=== PATIENT | female | born 2005 | race Caucasian/White ===

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

== ENCOUNTER 2024-01-30 15:14 | Outpatient (AMB) | payer OTHER, SELFPAY ==
[2024-01-30 16:10] VITALS: BP 104/40; PULSE 72; TEMP 36.6; O2SAT 98; BMI 31.6
--- NOTE | 2024-01-30 16:10 | AM.OFFWIN_ITS ---
<Statement entered by Isabella Beltran PA-C - 02/06/24 13:43> I was not involved in the care of this patient. GAUTAM Kevin Intake Vital Signs 01/30/24 16:10 Height 5 ft 1 in Weight 167 lb BMI 31.6 BP 104/40 L Blood Pressure Location Rt brachial Position Sitting Pulse 72 Pulse Source Pulse Oximeter Temp 97.9 F Temp Source Oral Pulse Oximetry (%) 98 Oxygen Delivery Method Room Air Intake Visit Reasons: EP-sore throat Intake Note: Patient here for cough, sob and sore throat that has been going on for about 1 week. Patient Tobacco Use Status: Never used Tobacco Allergies No Known Allergies Allergy (Verified 01/30/24 16:16) Do you need a note to return to daycare/school/sports/work: Yes HPI HPI Comments 2 History of Present Illness Details History of Present Illness The patient is a 18-year-old female presenting with acute cough and shortness of breath. She reports the cough is productive of mucus, but does not include any wheezing. In addition, she has experienced a sore throat. The cough has been persistent since her last visit on December 18, where she had a sore throat and headache; however, she was not at 100% health following this visit. She indicates there has been no history of asthma and no episodes of fever, ear pain or sinus pain. Interventions thus far include the use of cough drops, a chloraseptic spray offering some throat relief, saltwater gargles, and maintaining hydration with water. Additionally, an albuterol nebulizer was utilized last night, providing some relief of breathing difficulties, although no inhaler was trialed. Physical Exam General: Cooperative, healthy appearing, comfortable and no acute distress Orientation/consciousness: Patient oriented x3 Limitations: No limitations Head: Normal to inspection Ears: Hearing grossly normal bilaterally, external ears normal and TM's normal bilaterally Nose: Normal external nose present, Normal nares present and No nasal discharge present Face and sinus: Normal facial exam and Yes sinuses nontender Mouth: Normal oral and palatal mucosa present and moist mucous membranes Throat: Yes tonsils normal, Yes uvula midline. Posterior oropharynx erythema Eyes: Appearance normal, both eyes and all related structures Neck: Normal visual inspection Respirtory: Clear to auscultation bilaterally. Normal respiratory effort, able to speak in complete sentences, Actively coughing, no respiratory distress, not tachypneic, no tripod positioning and no use of accessory muscles Cardiovascular: Regular rate and rhythm. Normal S1 and S2 Skin: No rashes or lesions noted Neuro: Patient oriented x3 Extremities: Normal to inspection and Yes no clubbing, cyanosis or edema PFSH Social History Patient Tobacco Use Status: Never used Tobacco Review of Systems Const All systems reviewed & are unremarkable except as noted in HPI and below Physical Exam Vital Signs: Last Vital Signs Temp 97.9 F 01/30/24 16:10 Pulse 72 01/30/24 16:10 BP 104/40 L 01/30/24 16:10 Pulse Ox 98 01/30/24 16:10 Oxygen Delivery Method Room Air 01/30/24 16:10 BMI result Body Mass Index 31.6 Results AMB Rapid Strep AMB Rapid Strep Negative Last Edit by JUN Nielson on 01/30/24 16:31 Assessment & Plan Assessment & Plan (1) Atypical pneumonia: Code(s): J18.9 - Pneumonia, unspecified organism Plan: VSS, PE unremarkable. Rapid strep in office is negative. - Prescribe doxycycline, twice daily for five days, due to a potential severe interaction between citalopram and the alternative azithromycin Z-Hayes). - Advise avoidance of lactose-containing products during the antibiotic course to decrease potential gastrointestinal upset. - Prescribed an inhaler for symptomatic relief of shortness of breath. - Recommend continued hydration and rest. - Provide a note for work excuse 2 days. Orders: Orders AMB Rapid Strep Screen Today Z13.9 - Encounter for screening, unspecified Medications: New albuterol sulfate 90 mcg/actuation 2 puffs inhalation Q6H PRN 8.5 grams 0RF shortness of breath or wheezing or cough doxycycline hyclate 100 mg PO BID 10 tabs 0RF Coding Level of Care Code New Pt Level 3 (83795) Diagnoses Atypical pneumonia J18.9
== END 2024-01-30 16:38 | disposition home or self-care (01) ==
PROVIDERS: PCP Nurse Practitioner Pediatrics; Visit Provider Physician Assistant
DX: J18.9 Pneumonia, unspecified organism (principal)

== ENCOUNTER → 2024-01-30 15:14 | Outpatient (BNVA) | payer OTHER, SELFPAY | PROVIDERS: PCP Nurse Practitioner Pediatrics; Visit Provider Physician Assistant | DX: J18.9 Pneumonia, unspecified organism (principal) | CPT/HCPCS: 87880 ==

== ENCOUNTER 2024-04-18 15:46 | Outpatient (AMB) | payer OTHER, SELFPAY ==
[2024-04-18 16:05] VITALS: BP 110/70; PULSE 80; O2SAT 98
--- NOTE | 2024-04-18 16:05 | AM.OFFWIN_ITS ---
Intake Vital Signs 04/18/24 16:05 Weight 171 lb BP 110/70 Blood Pressure Location Rt brachial Position Sitting Pulse 80 Pulse Source Pulse Oximeter Pulse Oximetry (%) 98 Oxygen Delivery Method Room Air Intake Visit Reasons: EP vaginal infection? Intake Note: Patient for bump in vaginal area and states it is itchy, recently shaved and could be related? Patient Tobacco Use Status: Never used Tobacco Allergies amoxicillin Adverse Reaction (Intermediate, Verified 04/18/24 16:14) Hives Do you need a note to return to daycare/school/sports/work: No HPI HPI Comments History of Present Illness Details History of Present Illness - The patient is a 18-year-old female pr esenting with her mom with a vulvar bump with itchiness. - Symptoms began last night and include a red bump not filled with fluid. - There is no associated injury, and the patient describes it as similar to a mosquito bite. - There is no abnormal discharge or urin fern complaints. - The patient denies prior sexual health issues and reports no systemic symptoms suggesting infection. - Declined mandrel maker for exam Physical Exam General: Cooperative, healthy appearing, comfortable, no acute distress and well developed Orientation: Patient oriented x3 Limitations: No limitations Head: Normal to inspection Ears: Hearing grossly normal bilaterally Nose: Normal Nxternal nose present Face and sinus: ormal facial exam Eyes: Appearance normal, both eyes and all related structures Neck: Normal visual inspection and Yes full ROM Respiratory: Normal respiratory effort and able to speak in complete sentences. : left labia majora inferior aspect has slight erythema and edema but no signs of infection, no warmth, abnormal drainage, no dry/scaly skin, no vesicles, no warts, no molloscum noted. Neuro: Patient oriented x3 Extremities: Normal to inspection [facility] Social History Patient Tobacco Use Status: Never used Tobacco Review of Systems Const All systems reviewed & are unremarkable except as noted in HPI and below Physical Exam Vital Signs: Last Vital Signs Pulse 80 04/18/24 16:05 BP 110/70 04/18/24 16:05 Pulse Ox 98 04/18/24 16:05 Oxygen Delivery Method Room Air 04/18/24 16:05 Assessment & Plan Assessment & Plan (1) Irritation of vulva: Code(s): N90.89 - Other specified noninflammatory disorders of vulva and perineum Plan: The evaluation suggests the presence of an inflamed minor abrasion on the vulva, with no evidence of herpes, warts, or other infections requiring immediate intervention. Management includes reducing local irritation through avoidance of friction and applying topical soothing agents such as Vagisil. Education was provided on proper hygiene practices, advising against the use of direct soap. No additional diagnostics or treatments for sexually transmitted infections are necessary at this time. If symptoms persist or any new issues arise, follow-up care may be considered to provide appropriate interventions. Patient was informed and verbally consented to the use of an ambient scribe for clinic note documentation during this visit. Coding Level of Care Code New Pt Level 3 (39755) Diagnoses Irritation of vulva N90.89
--- OUTSIDE RECORDS SUMMARY | 2024-04-18 16:41 | XMS_ITS | Clinical Summary ---
Author Organization [facility] Address [address] [place] [address] Care Team Providers Care Yacht Hand Name Role Phone Unavailable Primary Care Provider Unavailabl e Social History Tobacco Use Types Packs/Day Years Used Date Smoking Tobacco: Never Assessed Comments Unknown Sex and Gender Information Value Date Recorded Sex Assigned at Not on file Legal Sex Female 6:52 PM EST Gender Identity Not on file Sexual Orientation Not on file Plan of Treatment Health Maintenance Due Date Last Done Comments Gonorrhea/Chlamydia Screening 2004 Varicella Vaccines (1 of 2 - 13+ 2-dose series) 2017 HPV Vaccines (1 - 3-dose series) 12/03/2019 Meningococcal B Vacine (1 of 2 - Standard) 2020 COVID-19 Vaccine (1 - 2023-2 5 season) 2023 Influenza Vaccine (#1) 2023 DTaP,Tdap,and Td Vaccines (1 - Tdap) 12/03/2023 Hepatitis B Vaccines (1 of 3 - 19+ 3-dose series) 12/03/2023 HIB Vaccines Aged Out No longer eligi ble based on patient's age to complete this topic Hepatitis A Vaccines Aged Out No long er eligible based on patient's age to complete this topic IPV Vaccines Aged Out No longer eligi ble based on patient's age to complete this topic MMR Vaccines Aged Out No longer eligi ble based on patient's age to complete this topic Meningococcal ACWY Vaccine Aged Out N o longer eligible based on patient's age to complete this topic Pneumococcal Vaccine: Pediat rics (0 to 5 Years) and At-Risk Patients (6 to 64 Years) Aged Out No longer eligible b ased on patient's age to complete this topic RSV Immunization Patients [place] 20 months Aged Out No longer eligible b ased on patient's age to complete this topic
== END 2024-04-18 16:32 | disposition home or self-care (01) ==
PROVIDERS: PCP Nurse Practitioner Pediatrics; Visit Provider Physician Assistant
DX: N90.89 Other specified noninflammatory disorders of vulva and perineum (principal)